=== PATIENT | female | born 2000 | race Caucasian/White ===

== ENCOUNTER 2022-09-18 00:51 | Inpatient (IN) | payer OTHER ==
[~2022-09-18] VITALS: Ht 177.8 cm; Wt 56.7 kg
[2022-09-18 01:51] LABS: BASOPHILS % (AUTO) 1.2 % (0.0-2.0); EOSINOPHILS % (AUTO) 3.4 % (1.0-6.0); HEMATOCRIT 41.6 % (36-46); HEMOGLOBIN 13.7 g/dL (12.0-16.0); LYMPHOCYTES # (AUTO) 1.9 K/uL (1.0-4.8); LYMPHOCYTES % (AUTO) 30.7 % (22.0-44.0); MEAN CORPUSCULAR HEMOGLOBIN 28.3 pg (26.0-34.0); MEAN CORPUSCULAR VOLUME 86 fL (80-100); MONOCYTES # (AUTO) 0.5 K/uL (0.1-1.0); MONOCYTES % (AUTO) 8.4 % (2.0-9.0); NEUTROPHILS # (AUTO) 3.6 K/uL (1.8-7.7); NEUTROPHILS % (AUTO) 56.3 % (40.0-70.0); PLATELET COUNT (AUTO) 259 K/uL (150-450); RED BLOOD CELL COUNT(AUTO) 4.85 MIL/uL (4.00-5.20); RED CELL DISTRIBUTION WIDTH 13.7 % (11.5-14.5)
[2022-09-18 01:58] LABS: ANION GAP 8 mmol/L (8-16); CALCIUM, TOTAL 9.6 mg/dL (8.8-10.5); CARBON DIOXIDE 29 mmol/L (22-29); CHLORIDE 102 mmol/L (98-107); CREATININE 0.63 mg/dL (0.60-1.30); GLOMERULAR FILTR. RATE CALC > 60 mL/min (>60); GLUCOSE,RANDOM 103 mg/dL (70-110); POTASSIUM 3.7 mmol/L (3.5-5.1); SODIUM SERUM 139 mmol/L (136-145)
[2022-09-18 02:14] LABS: ALANINE AMINOTRANSFERASE 16 U/L (12-78); ALBUMIN 3.8 g/dL (3.4-5.0); ALKALINE PHOSPHATASE 101 U/L (46-116); ASPARTATE AMINOTRANSFERASE 14 U/L (15-37); BILIRUBIN,TOTAL 0.2 mg/dL (0.1-1.0); HCG,QUANTITATIVE < 1 mIU/mL (0-6)
[2022-09-18 03:42] LABS: COVID AG,FIA SOURCE NASOPHARYNGEAL
[2022-09-18] MEDS ORDERED: HALOPERIDOL 5 MG TABLET PO PRN (04:00)
[2022-09-18] MEDS ORDERED: LORazepam 2 MG TABLET PO PRN (04:00)
[2022-09-18 05:15] VITALS: BP 115/76; PULSE 81; RESP 18; TEMP 97.5; O2SAT 100
[2022-09-18 09:09] LABS: APPEARANCE,URINE HAZY (CLEAR); BILIRUBIN,URINE NEGATIVE (NEGATIVE); GLUCOSE, URINE (UA) NEGATIVE (NEGATIVE); KETONES,URINE NEGATIVE (NEGATIVE); LEUKOCYTE ESTERASE ,URINE SMALL (NEGATIVE); NITRATE,URINE NEGATIVE (NEGATIVE); OCCULT BLOOD,URINE NEGATIVE (NEGATIVE); PROTEIN,URINE TRACE mg/dL (NEGATIVE)
[2022-09-18 09:16] LABS: AMPHET/METH SCREEN,URINE NEGATIVE (NEGATIVE); BARBITURATE SCREEN, URINE NEGATIVE (NEGATIVE); BENZODIAZEPINES SCREEN,URINE NEGATIVE (NEGATIVE); CANNABINOID SCREEN,URINE NEGATIVE (NEGATIVE); COCAINE SCREEN,URINE NEGATIVE (NEGATIVE); METHADONE SCREEN, URINE NEGATIVE (NEGATIVE); OPIATE SCREEN,URINE NEGATIVE (NEGATIVE); PHENCYCLIDINE SCREEN,URINE NEGATIVE (NEGATIVE)
[2022-09-18 09:28] LABS: RBC,URINE 0-2 /HPF (0-2)
[2022-09-18 09:32] LABS: BACTERIA,URINE None Seen /HPF (None Seen); SQUAMOUS EPITHELIAL CELL,UR Few /LPF (None Seen)
[2022-09-18 09:33] LABS: CALCIUM OXALATE CRYSTALS,UR Moderate /LPF (None Seen)
[2022-09-18] MEDS ORDERED: DESVENLAFAXINE SUCCINATE 100 MG ER TABLET PO SCH (10:00)
[2022-09-18 10:09] VITALS: BP 95/58; PULSE 83; RESP 18; TEMP 97.8; O2SAT 0
[2022-09-18] MEDS: DESVENLAFAXINE SUCCINATE 50 MG ER TABLET PO SCH (10:34)
[2022-09-18 12:20] VITALS: BP 96/63; PULSE 106; RESP 18; O2SAT 0
[2022-09-18] MEDS: PROPRANOLOL HCL 10 MG TABLET PO SCH ×2 (12:25→17:55)
[2022-09-18] MEDS: AMPHETAMINE/DEXTROAMPHETAMINE 10 MG TABLET PO SCH (14:40)
[2022-09-18 17:52] VITALS: BP 96/63; PULSE 101; RESP 18
[2022-09-18 20:21] VITALS: BP 102/72; PULSE 62; RESP 18; TEMP 97.1; O2SAT 98
[2022-09-18] MEDS: ZOLPIDEM TARTRATE 10 MG TABLET PO PRN (21:23)
[2022-09-19 08:52] VITALS: BP 109/70; PULSE 94; RESP 18; TEMP 97.4; O2SAT 100
[2022-09-19] MEDS ORDERED: DESVENLAFAXINE SUCCINATE 50 MG ER TABLET PO SCH (09:00)
[2022-09-19] MEDS ORDERED: MULTIVITAMINS, THERAPEUTIC TABLET PO SCH (09:00)
[2022-09-19] MEDS: PROPRANOLOL HCL 10 MG TABLET PO SCH ×3 (09:00→17:35)
[2022-09-19] MEDS: MULTIVITAMINS, THERAPEUTIC TABLET PO SCH (09:19)
[2022-09-19] MEDS: DESVENLAFAXINE SUCCINATE 50 MG ER TABLET PO SCH (09:19)
[2022-09-19] MEDS: AMPHETAMINE/DEXTROAMPHETAMINE 10 MG TABLET PO SCH ×2 (09:19→13:51)
[2022-09-19 12:56] VITALS: BP 90/56; RESP 18
[2022-09-19] MEDS: ZOLPIDEM TARTRATE 10 MG TABLET PO PRN (21:22)
[2022-09-19 21:39] VITALS: BP 103/64; PULSE 82; RESP 18; TEMP 97; O2SAT 100
[2022-09-20 08:55] VITALS: BP 104/69; PULSE 81; RESP 18; TEMP 97.1; O2SAT 98
[2022-09-20] MEDS: DESVENLAFAXINE SUCCINATE 50 MG ER TABLET PO SCH (09:52)
[2022-09-20] MEDS: MULTIVITAMINS, THERAPEUTIC TABLET PO SCH (09:53)
[2022-09-20] MEDS: AMPHETAMINE/DEXTROAMPHETAMINE 10 MG TABLET PO SCH ×2 (10:40→13:15)
[2022-09-20] MEDS ORDERED: AMPHETAMINE/DEXTROAMPHETAMINE 10 MG TABLET PO SCH (13:00)
[2022-09-20 16:49] VITALS: BP 110/63; PULSE 106; RESP 18; O2SAT 97
[2022-09-20] MEDS: PROPRANOLOL HCL 10 MG TABLET PO SCH (16:52)
[2022-09-20 21:36] VITALS: BP 109/68; PULSE 80; RESP 18; TEMP 97.6; O2SAT 98
[2022-09-21 09:25] VITALS: BP 97/84; PULSE 97; RESP 21; TEMP 97.7; O2SAT 100
[2022-09-21] MEDS: PROPRANOLOL HCL 10 MG TABLET PO SCH ×2 (09:26→16:37)
[2022-09-21] MEDS: DESVENLAFAXINE SUCCINATE 50 MG ER TABLET PO SCH (09:26)
[2022-09-21] MEDS: AMPHETAMINE/DEXTROAMPHETAMINE 10 MG TABLET PO SCH ×2 (09:26→13:31)
[2022-09-21] MEDS: MULTIVITAMINS, THERAPEUTIC TABLET PO SCH (09:27)
[2022-09-21 16:41] VITALS: BP 99/68; PULSE 104; RESP 18
[2022-09-21] MEDS: ZOLPIDEM TARTRATE 10 MG TABLET PO PRN (21:26)
[2022-09-21 21:49] VITALS: BP 110/71; PULSE 85; RESP 18; TEMP 98.1
[2022-09-22 08:27] VITALS: BP 95/60; PULSE 106; RESP 17; TEMP 97.1; O2SAT 100
[2022-09-22] MEDS: PROPRANOLOL HCL 10 MG TABLET PO SCH ×2 (09:16→18:34)
[2022-09-22] MEDS: AMPHETAMINE/DEXTROAMPHETAMINE 10 MG TABLET PO SCH ×2 (09:16→12:37)
[2022-09-22] MEDS: DESVENLAFAXINE SUCCINATE 50 MG ER TABLET PO SCH (09:17)
[2022-09-22] MEDS: MULTIVITAMINS, THERAPEUTIC TABLET PO SCH (09:17)
[2022-09-22 18:30] VITALS: BP 112/65; PULSE 90
[2022-09-22 22:17] VITALS: BP 90/54; PULSE 72; RESP 18; TEMP 96.5; O2SAT 98
[2022-09-23] MEDS: PROPRANOLOL HCL 10 MG TABLET PO SCH (09:00)
[2022-09-23 09:55] VITALS: BP 83/55; PULSE 114; RESP 18; TEMP 98; O2SAT 96
[2022-09-23] MEDS: AMPHETAMINE/DEXTROAMPHETAMINE 10 MG TABLET PO SCH ×2 (09:58→13:13)
[2022-09-23] MEDS: DESVENLAFAXINE SUCCINATE 50 MG ER TABLET PO SCH (09:59)
[2022-09-23] MEDS ORDERED: PROP10TA73 PO (10:50)
[2022-09-23] MEDS ORDERED: [UNRECOGNIZED DRUG - CODE] PO (10:51)
[2022-09-23] MEDS ORDERED: AMPH20TA3 PO (10:51)
== END 2022-09-23 13:52 | disposition home or self-care (01) | DRG 881 ==
LOC: EMS 00:51 → 3EI 04:00
PROVIDERS: ADMIT Psychiatry & Neurology Child & Adolescent Psychiatry; ATTEND Psychiatry & Neurology Child & Adolescent Psychiatry
DX: F32.9 Major depressive disorder, single episode, unspecified (principal); E44.0 Moderate protein-calorie malnutrition; R45.851 Suicidal ideations; Z68.1 Body mass index [BMI] 19.9 or less, adult; F41.1 Generalized anxiety disorder; F43.10 Post-traumatic stress disorder, unspecified; F41.9 Anxiety disorder, unspecified; F90.9 Attention-deficit hyperactivity disorder, unspecified type; G47.00 Insomnia, unspecified; R10.13 Epigastric pain; Z88.2 Allergy status to sulfonamides; Z79.899 Other long term (current) drug therapy
CPT/HCPCS: 80053; 80307; 81001; 81003; 84702; 85025; 87081; 99285; G0480; Q9967